=== PATIENT | male | born 1960 | race Caucasian/White ===

== ENCOUNTER → 2020-09-24 | Outpatient (CLI) | payer OTHER ==
[2020-09-24 13:04] LABS: ALBUMIN 3.8 g/dL (3.4-5.0); ANION GAP 8 mmol/L (7-16); BUN 19 mg/dL (7-18); CALCIUM 8.7 mg/dL (8.5-10.1); CHLORIDE 106 mmol/L (98-107); CHOLESTEROL 173 mg/dL (<200); CO2 28 mmol/L (21-32); CREATININE 1.3 mg/dL (0.7-1.3); GLUCOSE 107 mg/dL (74-106); HDL CHOLESTEROL 48 mg/dL (>40); LDL CHOLESTEROL 116 mg/dL (<100); POTASSIUM 4.1 mmol/L (3.5-5.1); SGOT 27 U/L (15-37); SGPT 40 U/L (30-65); SODIUM 142 mmol/L (136-145); TC:HDL 3.6 Ratio (Not establshd); TOTAL BILIRUBIN 0.7 mg/dL (0.2-1.0); TOTAL PROTEIN 6.5 g/dL (6.4-8.2); TRIGLYCERIDE 47 mg/dL (<150); VLDL 9 mg/dL (<40)
[2020-09-24 22:06] LABS: T4 (THYROXINE) 6.7 ug/dL (4.5-12.0)
[2020-09-25 01:06] LABS: LUTEINIZING HORMONE (LH) 7.7 mIU/mL (1.7-8.6); PSA 1.1 ng/mL (0.0-4.0)
== END ==
LOC: LABMALL 11:59
PROVIDERS: ATTEND Nurse Practitioner
DX: Z00.00 Encounter for general adult medical examination without abnormal findings (principal); E29.1 Testicular hypofunction; N52.9 Male erectile dysfunction, unspecified; E55.9 Vitamin D deficiency, unspecified; R35.1 Nocturia

== ENCOUNTER → 2021-01-22 | Outpatient (CLI) | payer OTHER ==
[2021-01-22 08:54] LABS: HEMATOCRIT 48.8 % (42.0-52.0); HEMOGLOBIN 16.4 gm/dL (14.0-18.0)
[2021-01-22 19:07] LABS: TESTOSTERONE* 560 ng/dL (264-916)
== END ==
LOC: LAB 08:31
PROVIDERS: ATTEND Nurse Practitioner
DX: E29.1 Testicular hypofunction (principal)